=== PATIENT | female | born 1945 | race Caucasian/White ===

== ENCOUNTER 2017-11-08 07:00 | Inpatient (IN) | payer OTHER ==
[~2017-11-08] VITALS: Ht 165.1 cm; Wt 58.1 kg
[2017-11-10] MEDS ORDERED: ASPIRIN EC81 M1 PO (11:25)
[2017-11-10] MEDS ORDERED: CARBIDOPA-LEVO1 EAC7 PO (11:26)
[2017-11-10] MEDS ORDERED: LEVOTHYROXINE50 MCG PO (11:26)
[2017-11-10] MEDS ORDERED: LISINOPRIL5 M1 PO (11:27)
[2017-11-10] MEDS ORDERED: METFORMIN HCL1000 M1 PO (11:28)
[2017-11-10] MEDS ORDERED: ZOLOFT50 M1 PO (11:28)
[2017-11-10] MEDS ORDERED: TRADJENTA5 M1 PO (11:29)
--- NOTE | 2017-11-13 11:21 | Admission Core Measures ---
Acute Coronary Syndrome (CM) ACS Core Measures Acute Coronary Syndrome Diagnosis No Congestive Heart Failure (NEW) CHF Core Measures Congestive Heart Failure Diagnosis No Cerebrovascular Accident (NEW) CVA Core Measures CVA/TIA Diagnosis No Venous Thromboembolism VTE Core Sloane (View Protocol) VTE Risk Factors Surgery No Mechanical VTE Prophylaxis d/t N/A MechProphylax Ordered No VTE Pharm Prophylaxis d/t NA PharmProphylax ordered Problem List As ranked by this Provider includes Assessment & Plan 1. Unilateral post-traumatic osteoarthritis, right hip HOME MEDS Home Med List Aspirin (Ecotrin*) 81 MG TABLET.DR 1 TAB PO DAILY [facility]HEALTH (Reported) Carbidopa/Levodopa (Carbidopa-Levodopa 25-100 Tab) 25 MG-100 MG TABLET 2 TAB PO TID [place]INSONS (Reported) Levothyroxine Sodium 50 MCG TABLET 1 TAB PO DAILY THYROID (Reported) Linagliptin (Tradjenta) 5 MG TABLET 1 TAB PO DAILY DIABETES (Reported) Lisinopril 5 MG TABLET 1 TAB PO DAILY BP (Reported) Metformin HCl 1,000 MG TABLET 1 TAB PO BID DIABETES (Reported) Sertraline HCl (Zoloft) 50 MG TABLET 1 TAB PO DAILY UNKNOWN (Reported)
[2017-11-13] MEDS ORDERED: MIRALAX17 G1 PO (11:31)
[2017-11-13] MEDS ORDERED: ASPIRIN EC325 M2 PO (11:31)
[2017-11-13] MEDS ORDERED: PRILOSEC OTC20 M1 PO (11:31)
[2017-11-13] MEDS ORDERED: COLACE100 M1 PO (11:31)
[2017-11-13] MEDS ORDERED: DILAUDID2 M1 PO (11:31)
--- NOTE | 2017-11-13 13:17 | Patient Discharge Instructions ---
Discharge Instructions General Discharge Information You were seen/treated for: Unilateral avascular necrosis h/o femoral neck fracture with cannulated screw fixation You had these procedures: Right hip conversion to total hip replacement Watch for these problems: Increasing pain despite the use of pain medication Increasing redness, warmth or swelling Drainage of any type from incision Inability to bear weight on operative leg Persistent nausea and vomiting Fever greater than 101.5 degrees Do not soak the wound: Yes No bath, but you may shower: Yes Other wound care: Please keep wound clean and dry. No ointments or lotions of any type on or near incision at any time. No exceptions. Your dressing will be changed by your nurse on the second day after your surgery. Daily dry dressing changes are recommended each day thereafter. Do not soak your wound in a bath at any time until otherwise indicated by your surgeon. You may shower, please dry wound immediately after shower with a clean towel. Special Instructions: Aspirin: You are taking this medication to help prevent blood clot formation. Please take with food to protect your stomach lining. Please take as directed. Constipation: Pain medication can cause constipation. Dr. López has recommended that you take Colace and miralax each day. You may discontinue this medication if you develop loose stool or diarrhea. If you wish to continue this medication, it is available over the counter. If you are unable to move your bowels after several days, if you are unable to pass gas and are developing bloating, nausea, or vomiting as a result, please contact your doctor. Diet Continue normal diet: Yes Recommended Diet: Diabetic Activity Full Activity/No Limits: No Activity Self Limited: Yes Pounds, do NOT lift more than: 10 Acute Coronary Syndrome Inclusion Criteria At DC or during hospital stay patient has or had the following: ACS DIAGNOSIS No Discharge Core Measures Meds if any: Prescribed or Continued at Discharge Meds if any: NOT Prescribed or Continued at Discharge Congestive Heart Failure Inclusion Criteria At DC or during hospital stay patient has or had the following: CHF DIAGNOSIS No Discharge Core Measures Meds if any: Prescribed or Continued at Discharge Meds if any: NOT Prescribed or Continued at Discharge Cerebrovascular accident Inclusion Criteria At DC or during hospital stay patient has or had the following: CVA/TIA Diagnosis No Discharge Core Measures Meds if any: Prescribed or Continued at Discharge Meds if any: NOT Prescribed or Continued at Discharge Venous thromboembolism Inclusion Criteria VTE Diagnosis No VTE Type NONE VTE Confirmed by (Test) NONE Discharge Core Measures - Per Current guidelines, there needs to be overlap - treatment for the first 5 days of Warfarin therapy. - If discharged on Warfarin prior to 5 days of - overlap therapy, the patient will need to be - assessed for post discharge needs including - *Post discharge parental anticoagulation - *Warfarin and/or parental anticoagulation education - *Follow up date to check INR post discharge At least 5 days overlap therapy as Inpatient No Meds if any: Prescribed or Continued at Discharge Note: Overlap Therapy is Warfarin and Anticoagulant Meds if any: NOT Prescribed or Continued at Discharge
--- NOTE | 2017-11-13 13:27 | Surgical Discharge Summary ---
Visit Information Visit Dates Admission Date: 11/13/17 Discharge Date: 11/16/2017 History of Present Illness Chief Complaint: Right hip pain related to avascular necrosis, h/o femoral neck fx with cannulated screw fixation Medical History Isolation History: Standard Surgical History Pertinent Surgical History: orif hip fx Review of Systems: See H&P Hospital Course Course Attending Physician: Darrius López MD Primary Care Physician: Tavo STEEL,Jana Lds Hospital Course: Patient was admitted to the hospital for an elective right total hip conversion. The procedure was tolerated well and patient was transferred to a general surgical floor. Diet was advanced and tolerated, and the patient voided spontaneously. The patient was evaluated and treated by physical therapy. At the time of hospital discharge, the vital signs were stable, neurovascular status was intact, and pain was controlled with the use of oral pain medications. Allergies: Coded Allergies: No Known Allergies (11/10/17) Significant Procedures: Right total hip conversion with Dr. López - refer to op note Disposition Summary Disposition Principal Diagnosis: Right hip avascular necrosis Additional Diagnosis: None Discharge Disposition: home health services Discharge Instructions General Discharge Information Code Status: Full Code Patient's Diet: Diabetic, advance as tolerated Patient's Activity: Weight-bear as tolerated Follow-Up Instructions/Appts: Follow up with Dr. López in 6 weeks from date of surgery. Please call his office to arrange and/or confirm this appointment. Medications at Discharge Discharge Medications: Stop taking the following medications: Aspirin (Ecotrin*) 81 MG TABLET. ORAL DAILY Continue taking these medications: Carbidopa/Levodopa (Carbidopa-Levodopa 25-100 Tab) 25 MG-100 MG TABLET 2 Tablet ORAL THREE TIMES DAILY Comments: Last Taken: 11/15/17 Time: 0830AM Levothyroxine Sodium (Levothyroxine Sodium) 50 MCG TABLET 1 Tablet ORAL DAILY Comments: Last Taken: 11/16/17 Time: 0600AM Lisinopril (Lisinopril) 5 MG TABLET 1 Tablet ORAL DAILY Comments: Last Taken: 11/16/17 Time: 0830AM Metformin HCl (Metformin HCl) 1,000 MG TABLET 1 Tablet ORAL TWICE DAILY Comments: Last Taken: 11/16/17 Time: 0830AM Sertraline HCl (Zoloft) 50 MG TABLET 1 Tablet ORAL DAILY Comments: Last Taken: 11/16/17 Time: 0830AM Linagliptin (Tradjenta) 5 MG TABLET 1 Tablet ORAL DAILY Comments: NOT GIVEN IN HOSPITAL Start taking the following new medications: Aspirin (Ecotrin*) 325 MG TABLET. 1 Tablet ORAL TWICE DAILY Qty = 60 No Refills Comments: Last Taken: 11/16/17 Time: 0830AM Docusate Sodium (Colace) 100 MG CAPSULE 1 Capsule ORAL TWICE DAILY Qty = 14 No Refills Instructions: DISCONTINUE USE IF YOU DEVELOP LOOSE STOOL OR DIARRHEA Comments: Last Taken: 11/16/17 Time: 0830AM Hydromorphone HCl (Dilaudid) 2 MG TABLET 1-2 Tablet ORAL EVERY 4-6 HOURS NEEDED as needed for PAIN Qty = 36 No Refills Comments: Last Taken: 11/16/17 Time: 0800AM Polyethylene Glycol 3350 (Miralax) 17 GRAM POWD.PACK 1 Packet ORAL DAILY Qty = 7 No Refills Instructions: dissolve in water, DISCONTINUE USE IF YOU DEVELOP LOOSE STOOL OR DIARRHEA Comments: NOT GIVEN IN HOSPITAL Omeprazole Magnesium (Prilosec Otc) 20 MG TABLET. 1 Tablet ORAL DAILY Qty = 30 No Refills Comments: Last Taken: 11/16/17 Time: 0600AM
--- NOTE | 2017-11-13 14:17 | Operative Report ---
Operative/Inv Procedure Report Surgery Date: 11/13/17 Name of Procedure: Right total hip conversion Pre-Operative Diagnosis: Right hip avascular necrosis Post-Operative Diagnosis: Same Estimated Blood Loss: 300 Surgeon/Foreign Student Adviser Teacher: Darrius López MD Anesthesia: block Operative/Procedure Note Note: Description of Procedure: The patient was taken to the operating room and positively identified. After induction of spinal anesthesia and administration of appropriate pre-operative antibiotics, the patient was positioned supine on the operating room table and all bony prominences were well padded. After performing a surgical timeout, the right lower extremity was prepped and draped in the usual sterile fashion. Utilizing the previous incision, the lateral aspect of the hip was opened. This was carried down through skin and subcutaneous tissue to the level of the bone. All 3 screw heads were identified and sequentially removed utilizing a screwdriver. A direct anterior approach was made to the right hip. The incision was carried sharply through superficial soft tissues to the level of the fascia. Meticulous hemostasis was maintained with Bovie electocautery. The fascia over the tensor fascia robyn muscle was opened sharply and the interval between the TFL and the sartorius was entered bluntly taking care to stay lateral to the lateral femoral cutaneous nerve. Retractors were placed around the femoral neck and the pericapsular fat was identified. The ascending branches of the lateral femoral circumflex vessels were identified and carefully coagulated. The pericapsular fat and anterior capsule were then resected. A napkin ring osteotomy was performed and the femoral head was removed without difficulty. Attention was then turned to the acetabulum. After appropriate placement of retractors, the acetabulum was exposed. Soft tissue was cleaned from the acetabular margin and notch. Overhanging osteophytes were removed and the teardrop was exposed. The acetabulum was then sequentially reamed to accept a 52 mm Karla Tritanium hemispherical solid shell. This was impacted into place in the appropriate position and fitted with a 32 mm Trident X3 zero degree polyethylene insert. Attention was then turned to the femur. After performing the appropriate ligament releases, the proximal femur was exposed. It was then sequentially broached to accept a size 3 Karla Accolade II stem. This was trialed for leg length and stability. The trial component was removed and the final component was impacted into place. The trunnion was carefully cleaned and fit with a 32 mm, +0 Biolox delta ceramic femoral head. The hip was reduced and put through a full range of motion and found to be stable. The articular space was then irrigated with sterile saline. The periarticular soft tissues were infilitrated with Marcaine. The fascial layer was closed with interrupted #1 vicryl suture and the skin was re-approximated with interrupted 2 -0 vicryl. The skin was closed with a running 3-0 V-Lock suture. Steri-strips and a sterile dressing were applied. The patient was awakened and taken to the recovery room in satisfactory condition.
--- NOTE | 2017-11-13 15:58 | PN- Orthopedic ---
Subjective Subjective: poc s/p left hip removal of hardware/right win resting comfortably in pacu denies cp, sob, no n+v with ice chips Objective Vital Signs and I&Os vss Physical Exam: cv: rrr lungs: clear abd: soft, +bs ext: drsg dry distal cms intact bilat no hematoma present at incision Assessment/Plan Assessment/Plan ortho stable plan may be oob wbat right le ice to right hip overnight asa/alps for dvt propylaxis titrate pain meds abx x 2more doses advance diet as tolerated home d/c planning Core Measures Venous Thromboembolism VTE Risk Factors Surgery No Mechanical VTE Prophylaxis d/t N/A MechProphylax Ordered No VTE Pharm Prophylaxis d/t NA PharmProphylax ordered
--- NOTE | 2017-11-13 16:05 | RADIOLOGY REPORT ---
EXAMINATION: XR HIP, RIGHT CLINICAL INFORMATION: Status post right hip conversion. COMPARISON: None TECHNIQUE: Two views of the right hip. FINDINGS: A right total hip arthroplasty is noted with components in usual position and usual appearance. The lateral view is slightly limited as a portion of the acetabular cup and femoral head is not included in the [id number] with examination. Recommend repeat lateral view. Skin carolina are present. Small amount of air present in the soft tissues compatible postop change. IMPRESSION: Slightly limited postop examination is portion of the head and acetabular cup is outside the [id number] on the crosstable lateral. Recommend repeat lateral. No abnormality detected
[2017-11-13 16:33] VITALS: BP 110/60
[2017-11-13 20:30] VITALS: BP 102/60
[2017-11-14 00:06] VITALS: BP 112/68
[2017-11-14 04:33] VITALS: BP 116/64
[2017-11-14 07:37] VITALS: BP 122/78
--- NOTE | 2017-11-14 08:03 | PN- Orthopedic ---
Subjective Subjective: POD#1 S/P RIGHT REJI NO MAJOR ISSUES OVERNIGHT DENIES CP, SOB, NO N+V WITH DIET Objective Vital Signs and I&Os Vital Signs Date Time Temp Pulse Resp B/P B/P Pulse O2 O2 Flow FiO2 Mean Ox Delivery Rate / 0433 97.4 70 20 116/64 95 Room Air / 0006 97.7 69 20 112/68 94 Room Air 11/13 2029 97.9 83 18 102/60 94 Room Air 11/13 1633 98.4 95 18 110/60 98 Nasal 2.0L Cannula 11/13 163 98 Nasal 2.0L Cannula 11/13 163 98 Nasal 2.0L Cannula Intake & Output 11/14 0800 11/14 0000 11/13 1600 11/13 0800 11/13 0000 11/12 1600 Intake Total 60 705 Output Total 1600 Balance 60 -895 Intake, IV 225 Intake, Oral 60 480 Output, Urine 1600 Patient 128 lb Weight Weight Reported by Patient Measurement Method Physical Exam: CV: RRR LUNGS: CLEAR ABD: SOFT, +BS EXT: THIGH SOFT DRSG DRY, NO CALF TENDERNESS, BILAT DISTAL CMS INTACT Assessment/Plan Assessment/Plan ORTHO STABLE PLAN OOB WITH PT TODAY ASA FOR DVT PROPHYLAXIS HOME D/C PLANNING Core Measures Venous Thromboembolism VTE Risk Factors Surgery No Mechanical VTE Prophylaxis d/t N/A MechProphylax Ordered No VTE Pharm Prophylaxis d/t NA PharmProphylax ordered
[2017-11-14 12:53] LABS: ABSOLUTE BASOPHIL COUNT 0 /CUMM (0.0-0.2); ABSOLUTE EOSINOPHIL COUNT 0 /CUMM (0.0-0.7); ABSOLUTE GRANULOCYTE CT 7.1 /CUMM (1.4-6.5); ABSOLUTE MONOCYTE COUNT 1.3 /CUMM (0.10-0.60); EOSINOPHIL % 0.2 % (0-5); GRANULOCYTE % 68.2 % (42.2-75.2); HEMATOCRIT 33.8 % (37-47); MEAN CORPUSCULAR HGB 30.4 PG (27.0-31.0); MEAN CORPUSCULAR HGB CONC 32.7 G/DL (33.0-37.0); MEAN CORPUSCULAR VOLUME 92.8 FL (81.0-99.0); MEAN PLATELET VOLUME 10.6 FL (7.4-10.4); PLATELET COUNT 242 /CUMM (130-400); RBC DISTRIBUTION WIDTH 13.9 % (11.5-14.5); RED BLOOD CELL CT 3.64 /CUMM (4.20-5.40); WHITE BLOOD CELL COUNT 10.3 /CUMM (4.8-10.8)
[2017-11-14 13:09] LABS: ABSOLUTE LYMPH COUNT 1.9 /CUMM (1.2-3.4); BASOPHIL % 0.4 % (0.0-2.0)
[2017-11-14 14:51] VITALS: BP 112/56
[2017-11-14 21:26] VITALS: BP 94/52
[2017-11-15 06:56] VITALS: BP 108/58
--- NOTE | 2017-11-15 07:23 | PN- Orthopedic ---
Subjective Subjective: pod#2 s/p right win no major issues overnight denies cp, sob, no n+v with diet Objective Vital Signs and I&Os Vital Signs Date Time Temp Pulse Resp B/P B/P Pulse O2 O2 Flow FiO2 Mean Ox Delivery Rate / 0656 98.0 72 18 108/58 95 02/06 2126 98.6 80 18 94/52 94 Room Air / 1451 98.4 78 20 112/56 96 Room Air / 0851 80 128/80 / 0737 97.9 64 20 122/78 97 Room Air Intake & Output 02/ 0800 02/ 0000 02/ 1600 / 0800 / 0000 / 1600 Intake Total 40 700 975 780 705 Output Total 450 450 954 230 7347 Balance -410 250 325 330 -895 Intake, IV 75 600 225 Intake, Oral 40 700 900 180 480 Number 0 0 Bowel Movements Output, Urine 450 450 702 021 6659 Patient 128 lb Weight Weight Reported by Patient Measurement Method Physical Exam: cv: rrr lungs: clear abd: soft, +bs ext: drsg changed. wpund c/di no calf tenderness bilat distal cms intact Assessment/Plan Assessment/Plan ortho stable plan cont oob with pt asa/alps for dvt prophylaxis titrate pain meds home d/c planning Core Measures Venous Thromboembolism VTE Risk Factors Surgery No Mechanical VTE Prophylaxis d/t N/A MechProphylax Ordered No VTE Pharm Prophylaxis d/t NA PharmProphylax ordered
[2017-11-15 15:08] VITALS: BP 96/50
[2017-11-15 22:06] VITALS: BP 102/62
[2017-11-16 07:37] VITALS: BP 102/58
[2017-11-16 08:00] VITALS: BP 114/80
--- NOTE | 2017-11-16 11:32 | PN- Orthopedic ---
Subjective Subjective: Patient offer no complaints. Pain well controlled. Denies numbness, tingling, fever, chills, chest pain, sob or difficulty breathing. She is eager to have lunch and go home today. Objective Vital Signs and I&Os Vital Signs Date Time Temp Pulse Resp B/P B/P Pulse O2 O2 Flow FiO2 Mean Ox Delivery Rate 11/16 799 78 114/80 11/16 736 98.0 73 18 102/58 92 11/15 220 98.1 77 18 102/62 93 Room Air 11/15 1508 97.3 79 18 96/50 93 Room Air Intake & Output 11/16 1600 11/16 0000 11/15 1600 11/15 0000 Intake Total 720 910 40 700 Output Total 450 450 Balance 720 910 -410 250 Intake, IV 10 Intake, Oral 720 900 40 700 Number 0 Bowel Movements Output, Urine 450 450 Physical Exam: Gen - resting comfortably awake an alert in NAD Cardiac - S1S2 noted, RRR Lungs - CTAB Abd - soft, nontender, nondistended. Ext - R hip inspected, dressing c/d/i. superior incision closed with internal sutures and steri strips in place, inferior and lateral is a 6 cm incisions with carolina in place, healing well with no signs of infection, moves all extremties, motor and sensory intact, alps in place, no edema or calf tenderness B/L Current Medications: Current Medications Sig/Benita Start time Last Medication Dose Route Stop Time Status Admin Aspirin 325 MG BID 11/13 2199 AC 11/16 PO 0759 Carbidopa/Levodopa 2 TAB TID 11/13 2199 AC 11/16 PO 0759 Docusate Sodium 100 MG BID 11/13 2199 AC 11/16 PO 0759 Hydromorphone HCl 2 MG Q4P PRN 11/13 171 AC PO Hydromorphone HCl 4 MG Q4P PRN 11/13 171 AC 11/16 PO 0759 Insulin Human Regular 2 UNITS .STK-MED ONE 11/15 2041 DC IV 11/15 2042 Insulin Human Regular 8 UNITS .STK-MED ONE 11/15 1636 DC IV 11/15 1637 Insulin Human Regular 0 TIDAC/HS 11/13 1200 AC 11/16 SC 0800 Levothyroxine Sodium 0.05 MG DAILY AC 11/14 0700 AC 11/16 PO 0452 Lisinopril 5 MG DAILY 11/14 1000 AC 11/16 PO 0800 Metformin HCl 1,000 MG 0800,1700 11/14 0800 AC 11/16 PO 0759 Morphine Sulfate 2 MG Q2P PRN 11/13 1715 AC 11/14 IV 1443 Omeprazole 40 MG DAILY AC 11/14 0700 AC 11/16 PO 0452 Ondansetron HCl 4 MG Q6P PRN 11/13 1715 AC IV Polyethylene Glycol 17 GM DAILY 11/14 1000 AC PO Promethazine HCl 12.5 MG Q6P PRN 11/13 1715 AC IV 11/20 1129 Sertraline HCl 50 MG DAILY 11/14 1000 AC 11/16 PO 0759 Assessment/Plan Assessment/Plan 71 F POD 3 s/p right total hip conversion secondary to right hip avascular necrosis who is recovering well and stable for discharge Cont ada diet Pain meds prn Home meds on board Bowel regimen on board GI ppx on board DVT ppx - alps, asa bid OOB with PT, WBAT Encourage IS D/c today home today with services Core Measures Venous Thromboembolism VTE Risk Factors Surgery No Mechanical VTE Prophylaxis d/t N/A MechProphylax Ordered No VTE Pharm Prophylaxis d/t NA PharmProphylax ordered
== END 2017-11-16 14:35 | disposition home health service (06) | DRG 470 ==
LOC: SDA 07:00 → EDSTATUS 07:00 → STS 07:00 → SDA 11-13 02:49 → 2NB 11-13 02:49 → SDA 11-13 07:00 → ENRESERV 11-13 15:31 → ENTRNSPT 11-13 16:02 → 2NB 11-13 16:32 → CMPTRNSPT 11-13 16:39 → ENPENDDIS 11-16 12:03 → ENTRNSPT 11-16 13:21 → EDTRNSPT 11-16 13:35 → EDTRNSPTSTS 11-16 13:35 → CMPTRNSPT 11-16 13:55 → ENTRNSPT 11-16 14:20 → CMPTRNSPT 11-16 14:31 → 2NB 11-16 14:35
PROVIDERS: Nurse Practitioner
PROC: 0SR904A Replacement of Right Hip Joint with Ceramic on Polyethylene Synthetic Substitute, Uncemented, Open Approach (ICD-10-PCS; principal; 2017-11-13)
PROC: 0QP404Z Removal of Internal Fixation Device from Right Acetabulum, Open Approach (ICD-10-PCS; 2017-11-13)
DX: M87.251 Osteonecrosis due to previous trauma, right femur (principal); G20 Parkinson's disease; E11.9 Type 2 diabetes mellitus without complications; I10 Essential (primary) hypertension; E03.9 Hypothyroidism, unspecified; E55.9 Vitamin D deficiency, unspecified; M16.11 Unilateral primary osteoarthritis, right hip; F17.210 Nicotine dependence, cigarettes, uncomplicated
CPT/HCPCS: 2NBP; 36415; 73502-RT; 82436; 88304; 97110-GO; 97116-GO; 97161-GP; 97530-GO; J0131; J0690; J0735; J1815; J2550; J3490

== ENCOUNTER 2018-02-26 03:16 | Inpatient (IN) | payer OTHER ==
[~2018-02-26] VITALS: Ht 165.1 cm; Wt 58.1 kg
[~2018-02-26 03:16] MED LIST: ASPIRIN EC325 M2 PO; ASPIRIN EC81 M1 PO; CALTRATE 600 +1 EACH PO; CARBIDOPA-LEVO1 EAC7 PO; COLACE100 M1 PO; DAILY MULTIPLE1 EACH PO; DILAUDID2 M1 PO; LEVOTHYROXINE50 MCG PO; LISINOPRIL5 M1 PO; METFORMIN HCL1000 M1 PO; MIRALAX17 G1 PO; ONGLYZA5 M1 PO; PRILOSEC OTC20 M1 PO; TRADJENTA5 M1 PO; VITAMIN D31000 UNI1 PO; ZOCOR40 M1 PO; ZOLOFT50 M1 PO
--- NOTE | 2018-02-26 08:24 | Admission Core Measures ---
Acute Coronary Syndrome (CM) ACS Core Measures Acute Coronary Syndrome Diagnosis Yes Congestive Heart Failure (NEW) CHF Core Measures Congestive Heart Failure Diagnosis Yes Cerebrovascular Accident (NEW) CVA Core Measures CVA/TIA Diagnosis Yes Venous Thromboembolism VTE Core [place]lo[place] (View Protocol) VTE Risk Factors Surgery No Mechanical VTE Prophylaxis d/t N/A MechProphylax Ordered No VTE Pharm Prophylaxis d/t NA PharmProphylax ordered Problem List As ranked by this Provider includes Assessment & Plan 1. Primary osteoarthritis of left hip HOME MEDS Home Med List Aspirin (Ecotrin*) 325 MG TABLET.DR 1 TAB PO BID ANTICOAGULATION Calcium Carbonate/Vitamin D3 (Caltrate 600 + D Tablet) 600 MG-800 TABLET 1 TAB PO DAILY SUPPLEMENT (Reported) Carbidopa/Levodopa (Carbidopa-Levodopa 25-100 Tab) 25 MG-100 MG TABLET 2 TAB PO TID [place]IN[place]S (Reported) Cholecalciferol (Vitamin D3) (Vitamin D3) 1,000 UNIT CAPSULE 1 CAP PO DAILY SUPPLEMENT (Reported) Levothyroxine Sodium 50 MCG TABLET 1 TAB PO DAILY THYROID (Reported) Lisinopril 5 MG TABLET 1 TAB PO DAILY BP (Reported) Metformin HCl 1,000 MG TABLET 1 TAB PO BID DIABETES (Reported) Multivitamin (Daily Multiple Vitamin) 1 EACH TABLET 1 TAB PO DAILY SUPPLEMENT (Reported) Saxagliptin (Onglyza) 5 MG TABLET 1 TAB PO DAILY DM (Reported) Sertraline HCl (Zoloft) 50 MG TABLET 1 TAB PO DAILY DEPRESSION (Reported) Simvastatin (Zocor*) 40 MG TABLET 1 TAB PO DAILY CHOLESTEROL (Reported)
--- NOTE | 2018-02-26 09:47 | RADIOLOGY REPORT ---
EXAMINATION: XR HIP, LEFT CLINICAL INFORMATION: Left hip replacement COMPARISON: None TECHNIQUE: Two views of the left hip. FINDINGS: The left total hip arthroplasty components are in the usual position and alignment without evidence of loosening or fracture. Soft tissue gas overlies the operative site. IMPRESSION: Standard postoperative appearance of the left total hip arthroplasty.
--- NOTE | 2018-02-26 10:38 | Surg Short-stay <48hrs Dis Sum ---
Visit Information Visit Dates Admission Date: 02/26/18 Discharge Date: 02/28/18 Surgical Short Stay DC Summary Admission Diagnosis: Primary osteoarthritis left hip Final Diagnosis: Same, status post left total hip arthroplasty Procedure(s): Left total hip arthroplasty Summary/Significant Findings: Patient was admitted to the hospital for an elective total joint replacement. Procedure was tolerated well and patient was transferred to a general surgical floor. Diet was advanced and tolerated. Physical therapy performed evaluation and treatment. At time of hospital discharge, vital signs were stable, neurovascular status was intact, and pain was controlled with the use of oral pain medications. Condition at Discharge: Stable Discharge Disposition: home health services Discharge instructions provided to patient/family: Yes Post discharge follow-up plan: Follow up with Dr. López in 6 weeks from date of surgery. Please call his office to schedule/confirm this appointment. Copies to: Darrius López MD
--- NOTE | 2018-02-26 10:39 | Patient Discharge Instructions ---
Discharge Instructions General Discharge Information You were seen/treated for: Left hip pain related to primary osteoarthritis You had these procedures: Left total hip arthroplasty Watch for these problems: Increasing pain despite the use of pain medication Increasing redness, warmth or swelling Drainage of any type from incision Inability to bear weight on operative leg Persistent nausea and vomiting Fever greater than 101.5 degrees Other wound care: Please keep wound clean and dry. No ointments or lotions of any type on or near incision. Your dressing will be changed by your nurse on the second day after your surgery. Daily dry dressing changes are recommended each day thereafter. You may shower 48hr after surgery. Do not soak your wound- no tub baths or swimming. Special Instructions: Aspirin: You are taking this medication to help prevent blood clot formation. Please take with food to protect your stomach lining. Take as directed. Protonix (pantoprazole): Take this medication to protect your stomach lining while taking high dose aspirin. Constipation: Pain medication can cause constipation. It is recommended that you take Colace and miralax daily. You may discontinue this medication if you develop loose stool or diarrhea. If you wish to continue this medication, it is available over the counter. If you are unable to move your bowels or pass gas after several days, please contact your doctor. Diet Continue normal diet: Yes Recommended Diet: Diabetic Activity Activity Limited to: Weight bear as tolerated Additional ACTIVITY Info: Use assistive devices as needed Acute Coronary Syndrome Inclusion Criteria At DC or during hospital stay patient has or had the following: ACS DIAGNOSIS No Discharge Core Measures Meds if any: Prescribed or Continued at Discharge Meds if any: NOT Prescribed or Continued at Discharge Congestive Heart Failure Inclusion Criteria At DC or during hospital stay patient has or had the following: CHF DIAGNOSIS No Discharge Core Measures Meds if any: Prescribed or Continued at Discharge Meds if any: NOT Prescribed or Continued at Discharge Cerebrovascular accident Inclusion Criteria At DC or during hospital stay patient has or had the following: CVA/TIA Diagnosis No Discharge Core Measures Meds if any: Prescribed or Continued at Discharge Meds if any: NOT Prescribed or Continued at Discharge Venous thromboembolism Inclusion Criteria VTE Diagnosis No VTE Type NONE VTE Confirmed by (Test) NONE Discharge Core Measures - Per Current guidelines, there needs to be overlap - treatment for the first 5 days of Warfarin therapy. - If discharged on Warfarin prior to 5 days of - overlap therapy, the patient will need to be - assessed for post discharge needs including - *Post discharge parental anticoagulation - *Warfarin and/or parental anticoagulation education - *Follow up date to check INR post discharge At least 5 days overlap therapy as Inpatient No Meds if any: Prescribed or Continued at Discharge Note: Overlap Therapy is Warfarin and Anticoagulant Meds if any: NOT Prescribed or Continued at Discharge
[2018-02-26 10:45] VITALS: BP 108/64
[2018-02-26] MEDS ORDERED: MIRALAX17 G1 PO (11:04)
[2018-02-26] MEDS ORDERED: ASPIRIN EC81 M1 PO (11:04)
[2018-02-26] MEDS ORDERED: PROTONIX20 M1 PO (11:04)
[2018-02-26] MEDS ORDERED: DILAUDID2 M1 PO (11:04)
[2018-02-26] MEDS ORDERED: COLACE100 M1 PO (11:04)
--- NOTE | 2018-02-26 14:06 | PN- Orthopedic ---
Subjective Subjective: POC up with pt, felt good. denies pain. no n/v/cp/sob. ate lunch. feeling tired. Objective Vital Signs and I&Os Vital Signs Date Time Temp Pulse Resp B/P B/P Pulse O2 O2 Flow FiO2 Mean Ox Delivery Rate 02/26 1045 97.7 65 18 108/64 93 Room Air Intake & Output 02/26 1600 02/26 0800 02/26 0000 02/25 1600 02/25 0800 02/25 0000 Intake Total Output Total Balance Patient 128 lb Weight Weight Standing Scale Measurement Method FS: >200 Physical Exam: gen- nad card- s1s2 rrr pulm- ctab abd- soft nt ext- lle hip dressed-cdi, gross sensation intact, gross dorsi/plantarflexion intact. palp pedal pulses bl. calves soft nt bl, alps on. Assessment/Plan Assessment/Plan A- POD0 sp L REJI, PMHx parkinsons, hypothy,htn,dm,glaucoma,depression, stable postop with no pain. P- prn pain meds prn antiemetics i&os ada diet as tolerated riss, fs anticoag: [id number] bid am labs home meds oob, pt, wbat will dw attending Problem List: 1. Primary osteoarthritis of left hip Core Measures Venous Thromboembolism VTE Risk Factors Surgery No Mechanical VTE Prophylaxis d/t N/A MechProphylax Ordered No VTE Pharm Prophylaxis d/t NA PharmProphylax ordered
--- NOTE | 2018-02-26 14:48 | Operative Report ---
Operative/Inv Procedure Report Surgery Date: 02/26/18 Name of Procedure: Left total hip replacement Pre-Operative Diagnosis: Primary left hip DJD Post-Operative Diagnosis: Same Estimated Blood Loss: 300 Surgeon/Crochet Machine Operator: Maribel STEEL,Darrius Rivero Anesthesia: block Operative/Procedure Note Note: Description of Procedure: The patient was taken to the operating room and positively identified. After induction of spinal anesthesia and administration of appropriate pre-operative antibiotics, the patient was positioned supine on the operating room table and all bony prominences were well padded. After performing a surgical timeout, the left lower extremity was prepped and draped in the usual sterile fashion. A direct anterior approach was made to the left hip. The incision was carried sharply through superficial soft tissues to the level of the fascia. Meticulous hemostasis was maintained with Bovie electocautery. The fascia over the tensor fascia robyn muscle was opened sharply and the interval between the TFL and the sartorius was entered bluntly taking care to stay lateral to the lateral femoral cutaneous nerve. Retractors were placed around the femoral neck and the pericapsular fat was identified. The ascending branches of the lateral femoral circumflex vessels were identified and carefully coagulated. The pericapsular fat and anterior capsule were then resected. A napkin ring osteotomy was performed and the femoral head was removed without difficulty. Attention was then turned to the acetabulum. After appropriate placement of retractors, the acetabulum was exposed. Soft tissue was cleaned from the acetabular margin and notch. Overhanging osteophytes were removed and the teardrop was exposed. The acetabulum was then sequentially reamed to accept a 54 mm Thorndike Tritanium hemispherical solid shell. This was impacted into place in the appropriate position and fitted with a 36 mm Trident X3 zero degree polyethylene insert. Attention was then turned to the femur. After performing the appropriate ligament releases, the proximal femur was exposed. It was then sequentially broached to accept a size 3 Karla Accolade II stem. This was trialed for leg length and stability. The trial component was removed and the final component was impacted into place. The trunnion was carefully cleaned and fit with a 36 mm, +0 Biolox delta ceramic femoral head. The hip was reduced and put through a full range of motion and found to be stable. The articular space was then irrigated with sterile saline. The periarticular soft tissues were infilitrated with Marcaine. The fascial layer was closed with interrupted #1 vicryl suture and the skin was re-approximated with interrupted 2 -0 vicryl. The skin was closed with a running 3-0 V-Lock suture. Steri-strips and a sterile dressing were applied. The patient was awakened and taken to the recovery room in satisfactory condition.
[2018-02-26 15:02] VITALS: BP 100/58
[2018-02-26 15:21] VITALS: BP 106/64
[2018-02-26 17:03] VITALS: BP 112/60
[2018-02-26 19:45] VITALS: BP 110/60
[2018-02-26 23:32] VITALS: BP 112/56
[2018-02-27 03:33] VITALS: BP 108/58
[2018-02-27 07:37] VITALS: BP 110/56
--- NOTE | 2018-02-27 07:40 | PN- Orthopedic ---
Subjective Subjective: pt in bed, 8/10 left hip pain. has not been oob yet, planning to work with PT this morning Tolerating regular diet. Voiding. Deneis paresthesias. Denies cp/sob Objective Vital Signs and I&Os Vital Signs Date Time Temp Pulse Resp B/P B/P Pulse O2 O2 Flow FiO2 Mean Ox Delivery Rate 02/27 0737 98.9 80 18 110/56 95 Room Air 02/27 0333 97.3 85 18 108/58 93 02/26 2332 97.9 91 18 112/56 91 02/26 1945 98.6 76 18 110/60 96 Room Air 02/26 1703 98.0 75 18 112/60 95 02/26 1658 Room Air 02/26 1521 97.4 70 18 106/64 98 02/26 1502 97.5 69 16 100/58 97 Room Air 02/26 1045 97.7 65 18 108/64 93 Room Air Intake & Output 02/27 0800 02/27 0000 02/26 1600 02/26 0800 02/26 0000 02/25 1600 Intake Total 950 705 705 Output Total 650 250 500 Balance 300 455 205 Intake, IV 470 225 225 Intake, Oral 480 480 480 Number 0 0 Bowel Movements Output, Urine 650 250 500 Patient 128 lb Weight Weight Standing Scale Measurement Method Physical Exam: gen- NAD resp- clear cardiac- RRR abd- nd, soft, NT ext- left hip dressing clean and dry, thigh is soft. distal sensory and motor function intact. 2+ PT pulse Current Medications: Current Medications Sig/Benita Start time Last Medication Dose Route Stop Time Status Admin Acetaminophen 650 MG Q4P PRN 02/26 1100 AC PO Acetaminophen 975 MG ONCE 02/26 0000 DC PO 02/26 235 Aspirin Buffered 81 MG BID 02/26 2100 AC 02/26 PO 2018 Atorvastatin Calcium 20 MG 1700 02/26 1700 DC PO Atorvastatin Calcium 20 MG 1700 02/26 1700 AC 02/26 PO 1710 Carbidopa/Levodopa 2 TAB TID 02/26 1400 AC 02/26 PO 2018 Carbidopa/Levodopa 2 TAB TID 02/26 0900 DC PO Cefazolin Sodium 2 GM IQ8 02/26 1600 DC 02/26 N/A 1 UNIT IV 02/27 0029 2335 Cefazolin Sodium 2,000 MG ONCE 02/26 0000 DC IV 02/26 2359 Dextrose/Sodium 1,000 ML .[id number] 02/26 1100 AC 02/26 Chloride IV 223 Docusate Sodium 100 MG BID 02/26 2100 AC 02/26 PO 2018 Hydromorphone HCl 2 MG Q4P PRN 02/26 1100 AC PO Hydromorphone HCl 4 MG Q4P PRN 02/26 1100 AC 02/27 PO 0525 Insulin Aspart 0 AT BEDTIME 02/26 2100 AC SC Insulin Aspart 0 TIDAC 02/26 1200 AC 02/26 SC 1849 Levothyroxine Sodium 0.05 MG DAILY AC 02/27 0700 AC 02/27 PO 0525 Levothyroxine Sodium 0.05 MG DAILY AC 02/26 0900 DC PO Lisinopril 5 MG DAILY 02/27 0900 AC PO Lisinopril 5 MG DAILY 02/26 0900 DC PO Morphine Sulfate 2 MG Q2P PRN 02/26 1100 AC 02/26 IV 2230 Omeprazole 20 MG DAILY AC 02/27 0700 AC 02/27 PO 0525 Ondansetron HCl 4 MG Q6P PRN 02/26 1100 AC IV Oxycodone HCl 10 MG ONCE 02/26 0000 DC PO 02/26 235 Polyethylene Glycol 17 GM DAILY AC 02/27 0700 AC 02/27 PO 0525 Promethazine HCl 12.5 MG Q6P PRN 02/26 1100 AC IV 03/05 0914 Sertraline HCl 50 MG DAILY 02/27 0900 AC PO Sertraline HCl 50 MG DAILY 02/26 0900 DC PO Assessment/Plan Assessment/Plan A- POD1 sp L REJI, PMHx parkinsons, hypothy,htn,dm,glaucoma,depression, stable P- prn pain meds i&os regular diet riss, fs anticoag: [id number] bid FU am labs home meds oob, pt, wbat will dw attending Core Measures Venous Thromboembolism VTE Risk Factors Surgery No Mechanical VTE Prophylaxis d/t N/A MechProphylax Ordered No VTE Pharm Prophylaxis d/t NA PharmProphylax ordered
[2018-02-27 08:39] LABS: ABSOLUTE BASOPHIL COUNT 0 /CUMM (0.0-0.2); ABSOLUTE EOSINOPHIL COUNT 0 /CUMM (0.0-0.7); ABSOLUTE GRANULOCYTE CT 5.4 /CUMM (1.4-6.5); ABSOLUTE LYMPH COUNT 1.2 /CUMM (1.2-3.4); ABSOLUTE MONOCYTE COUNT 1.4 /CUMM (0.10-0.60); BASOPHIL % 0.3 % (0.0-2.0); EOSINOPHIL % 0.4 % (0-5); GRANULOCYTE % 66.8 % (42.2-75.2); HEMATOCRIT 31.1 % (37-47); MEAN CORPUSCULAR HGB 30.3 PG (27.0-31.0); MEAN CORPUSCULAR VOLUME 91.9 FL (81.0-99.0); MEAN PLATELET VOLUME 11.2 FL (7.4-10.4); PLATELET COUNT 179 /CUMM (130-400); RBC DISTRIBUTION WIDTH 13.5 % (11.5-14.5); RED BLOOD CELL CT 3.39 /CUMM (4.20-5.40); WHITE BLOOD CELL COUNT 8.1 /CUMM (4.8-10.8)
[2018-02-27 14:23] VITALS: BP 108/62
[2018-02-27 21:02] VITALS: BP 116/60
[2018-02-28 06:29] VITALS: BP 112/58
--- NOTE | 2018-02-28 08:12 | PN- Orthopedic ---
Subjective Subjective: pod#2 s/p left win no major issues overnight denies cp, sob, no n+v ambultaing well with pt, woiting to do stairs Objective Vital Signs and I&Os Vital Signs Date Time Temp Pulse Resp B/P B/P Pulse O2 O2 Flow FiO2 Mean Ox Delivery Rate 02/28 0629 97.4 71 18 112/58 95 Room Air 02/27 2102 98.9 83 18 116/60 94 Room Air 02/27 1423 98.6 68 18 108/62 95 Room Air 02/27 0928 84 110/60 Intake & Output 02/28 1600 02/28 0800 02/28 0000 02/27 1600 02/27 0800 02/27 0000 Intake Total 120 950 795 950 705 Output Total 650 650 650 250 Balance 120 300 145 300 455 Intake, IV 75 470 225 Intake, Oral 120 950 720 480 480 Number 0 0 Bowel Movements Output, Urine 650 650 650 250 Physical Exam: cv: rrr lungs: clear abd: soft, +bs ext: drsg changed, wound c/d/i thigh soft distal cms intact, calves soft bilat Assessment/Plan Assessment/Plan ortho stable plan stairs with pt cont current regime when cleared by pt will d/c home later today Core Measures Venous Thromboembolism VTE Risk Factors Surgery No Mechanical VTE Prophylaxis d/t N/A MechProphylax Ordered No VTE Pharm Prophylaxis d/t NA PharmProphylax ordered
[2018-02-28 08:29] VITALS: BP 112/58
[2018-02-28] MEDS ORDERED: ZOFRAN ODT4 M1 SL (13:02)
== END 2018-02-28 13:36 | disposition home health service (06) | DRG 470 ==
LOC: SDA 03:16 → ENRESERV 09:32 → ENTRNSPT 10:20 → EDTRNSPT 10:34 → EDTRNSPTSTS 10:34 → 2NB 10:41 → CMPTRNSPT 11:03 → ENPENDDIS 02-28 08:17 → ENTRNSPT 02-28 13:21 → 2NB 02-28 13:36 → EDTRNSPTSTS 02-28 13:42 → EDTRNSPT 02-28 13:42 → CMPTRNSPT 02-28 13:53
PROVIDERS: Physician Assistant Surgical
PROC: 0SRB04A Replacement of Left Hip Joint with Ceramic on Polyethylene Synthetic Substitute, Uncemented, Open Approach (ICD-10-PCS; principal; 2018-02-26)
DX: M16.12 Unilateral primary osteoarthritis, left hip (principal); G20 Parkinson's disease; E11.9 Type 2 diabetes mellitus without complications; Z96.641 Presence of right artificial hip joint; E03.9 Hypothyroidism, unspecified; Z79.84 Long term (current) use of oral hypoglycemic drugs; F32.9 Major depressive disorder, single episode, unspecified; E55.9 Vitamin D deficiency, unspecified; H40.9 Unspecified glaucoma; Z90.49 Acquired absence of other specified parts of digestive tract
CPT/HCPCS: 2NBSP; 36592; 73502-LT; 82436; 97110-GO; 97116-GO; 97161-GP; 97530-GO; J0690; J0735; J2405; J2550; J3490; J7042